=== PATIENT | female | born 1965 | race Hispanic/Latino ===

== ENCOUNTER 2020-05-05 18:05 | Emergency (ER) | payer BC, OTHER ==
[~2020-05-05] VITALS: Ht 157.5 cm; Wt 81.6 kg
[2020-05-05 19:24] LABS: CLARITY,URINE SL CLOUDY (CLEAR); COLOR,URINE YELLOW (YELLOW); LEUKOCYTE ESTERASE ,URINE NEGATIVE (NEGATIVE); NITRITE,URINE NEGATIVE (NEGATIVE); PROTEIN,URINE DIPSTICK TRACE (NEGATIVE)
[2020-05-05 19:25] LABS: BILIRUBIN,URINE NEGATIVE (NEGATIVE); KETONES,URINE NEGATIVE (NEGATIVE); URINE UROBILINOGEN 0.2 mg/dL (0.2 - 1)
[2020-05-05 19:26] LABS: PREGNANCY TEST, URINE NEGATIVE (NEGATIVE)
[2020-05-05] MEDS ORDERED: ACETAMINOPHEN 325 MG TAB PO ONE (19:30)
[2020-05-05 19:38] LABS: AMORPHOUS SEDIMENT,URINE MODERATE (FEW); BACTERIA,URINE MODERATE /HPF; EPITHELIAL CELLS,URINE FEW /LPF; RBC,URINE 0-5 /HPF (0-5)
[2020-05-05 20:01] LABS: EOSINOPHILS % 0.4 % (0.0-6.0); HEMATOCRIT 42.3 % (34.2-44.1); HEMOGLOBIN 13.5 g/dL (12.0-16.0); LYMPHOCYTES # (AUTO) 1.4 (1.0-3.2); LYMPHOCYTES % 29.6 % (18.0-39.1); MEAN CORPUSCULAR HEMOGLOBIN 27.8 pg (28-32); MEAN CORPUSCULAR HGB CONC 31.9 g/dL (31-35); MEAN CORPUSCULAR VOLUME 87.2 fL (81-99); MONOCYTES # (AUTO) 0.4 (0.2-0.8); MONOCYTES % 9.3 % (4.4-11.3); NEUTROPHILS # (AUTO) 2.8 (2.1-6.9); NEUTROPHILS % 60.5 % (38.7-80.0); PLATELET COUNT 150 x10e3/uL (140-360); RED BLOOD COUNT 4.85 x10e6/uL (3.6-5.1); RED CELL DISTRIBUTION WIDTH 13.2 % (11.7-14.4)
[2020-05-05 20:13] LABS: ALBUMIN 3.8 g/dL (3.5-5.0); ALBUMIN/GLOBULIN RATIO 1.3 (0.8-2.0); ANION GAP 9.7 mmol/L (8-16); CALCIUM 8.7 mg/dL (8.4-10.2); CREATININE, SERUM 1.01 mg/dL (0.57-1.11); POTASSIUM 3.7 mmol/L (3.5-5.1)
--- NOTE | 2020-05-06 00:28 | Diagnostic Imaging Report ---
Examination: Single AP view of the chest. COMPARISON: None. INDICATION: Shortness of breath, chest pain, fever IMPRESSION: 1. Lines and Tubes: None 2. Lungs are grossly clear. No consolidation or effusion. 3. Cardiomediastinal silhouette is normal. Pulmonary vasculature is normal. 4. No acute bony abnormalities. Signed by: Dr. Leonel Gonzales M.D. on 05/06/2020 12:25 AM
--- NOTE | 2020-05-06 02:20 | Emergency Department Note ---
History of Present Illnes History of Present Illness Chief Complaint: General Medicine Complaints History of Present Illness This is a 54 year old female HERE FOR BODY ACHES AND HEADACHE, ALSO REPORTS SUBJECTIVE FEVER AT HOME AND URINARY FREQUENCY BUT DENIES PAINFUL URINATION. . Historian: Patient Arrival Mode: Car Onset (how long ago): day(s) (2) Location: BODY, HEAD Quality: FEVER BODY ACHES, DYSURIA Radiation: Reports non-radiation Severity: mild Onset quality: gradual Duration (how long): day(s) (2) Timing of current episode: constant Progression: unchanged Chronicity: new Context: Denies recent illness, Denies recent surgery Relieving factors: none Exacerbating factors: none Associated symptoms: Reports denies other symptoms Past Medical/Family History Physician Review I have reviewed the patient's past medical and family history. Any updates have been documented here. Past Medical History Recent Fever: Yes Clinical Suspicion of Infectio: Yes New/Unexplained Change in Ment: No Past Medical History: GERD Other Surgery: KIDNEY REMOVAL Social History Smoking Cessation: Never Smoker Alcohol Use: None Any Illegal Drug Use: No TB Exposure/Symptoms: No Physically hurt or threatened: No Other Any Pre-Existing Lines (PICC,: No Is patient up to date on immun: Yes Last Flu: UTD Last Pneumovax: DENIES Review of Systems Review of Systems Constitutional: Reports as per HPI EENTM: Reports no symptoms Cardiovascular: Reports no symptoms Respiratory: Reports no symptoms Gastrointestinal: Reports no symptoms Genitourinary: Reports as per HPI Musculoskeletal: Reports no symptoms Integumentary: Reports no symptoms Neurological: Reports no symptoms Psychological: Reports no symptoms Endocrine: Reports no symptoms Hematological/Lymphatic: Reports no symptoms Physical Exam Related Data Allergies: Coded Allergies: No Known Allergies (Unverified , 05/05/20) Triage Vital Signs Vital Signs Date Time Temp Pulse Resp B/P (MAP) Pulse Ox O2 Delivery O2 Flow Rate FiO2 05/05/20 18:32 101.2 100 18 131/85 97 Vital signs reviewed: Yes Physical Exam CONSTITUTIONAL Constitutional: Present well-developed, Present well-nourished HENT HENT: Present normocephalic, Present atraumatic, Present oropharynx clear/moist, Present nose normal HENT L/R: Present left ext ear normal, Present right ext ear normal EYES Eyes: Reports PERRL, Reports conjunctivae normal NECK Neck: Present ROM normal PULMONARY Pulmonary: Present effort normal, Present breath sounds normal CARDIOVASCULAR Cardiovascular: Present regular rhythm, Present heart sounds normal, Present capillary refill normal, Present normal rate GASTROINTESTINAL Abdominal: Present soft, Present nontender, Present bowel sounds normal GENITOURINARY Genitourinary: Present exam deferred SKIN Skin: Present warm, Present dry MUSCULOSKELETAL Musculoskeletal: Present ROM normal NEUROLOGICAL Neurological: Present alert, Present oriented x 3, Present no gross motor or sensory deficits PSYCHOLOGICAL Psychological: Present mood/affect normal, Present judgement normal Results Laboratory Result Diagram: 05/05/20193905/05/201939 Laboratory Laboratory Tests Test 05/05/20 23:37 05/05/20 19:40 05/05/20 18:37 White Blood Count 4.60 x10e3/uL (4.8-10.8) Red Blood Count 4.85 x10e6/uL (3.6-5.1) Hemoglobin 13.5 g/dL (12.0-16.0) Hematocrit 42.3 % (34.2-44.1) Mean Corpuscular Volume 87.2 fL (81-99) Mean Corpuscular Hemoglobin 27.8 pg (28-32) Mean Corpuscular Hemoglobin Concent 31.9 g/dL (31-35) Red Cell Distribution Width 13.2 % (11.7-14.4) Platelet Count 150 x10e3/uL (140-360) Neutrophils (%) (Auto) 60.5 % (38.7-80.0) Lymphocytes (%) (Auto) 29.6 % (18.0-39.1) Monocytes (%) (Auto) 9.3 % (4.4-11.3) Eosinophils (%) (Auto) 0.4 % (0.0-6.0) Basophils (%) (Auto) 0.0 % (0.0-1.0) Neutrophils # (Auto) 2.8 (2.1-6.9) Lymphocytes # (Auto) 1.4 (1.0-3.2) Monocytes # (Auto) 0.4 (0.2-0.8) Eosinophils # (Auto) 0.0 (0.0-0.4) Basophils # (Auto) 0.0 (0.0-0.1) Absolute Immature Granulocyte (auto 0.01 x10e3/uL (0-0.1) Sodium Level 141 mmol/L (136-145) Potassium Level 3.7 mmol/L (3.5-5.1) Chloride Level 108 mmol/L (98-107) Carbon Dioxide Level 27 mmol/L (22-29) Anion Gap 9.7 mmol/L (8-16) Blood Urea Nitrogen 9 mg/dL (7-26) Creatinine 1.01 mg/dL (0.57-1.11) Estimat Glomerular Filtration Rate 57 ML/MIN (60-) BUN/Creatinine Ratio 9 (6-25) Glucose Level 113 mg/dL (74-118) Calcium Level 8.7 mg/dL (8.4-10.2) Total Bilirubin 0.4 mg/dL (0.2-1.2) Aspartate Amino Transf (AST/SGOT) 18 IU/L (5-34) Alanine Aminotransferase (ALT/SGPT) 19 IU/L (0-55) Alkaline Phosphatase 60 IU/L (40-150) Total Protein 6.8 g/dL (6.5-8.1) Albumin 3.8 g/dL (3.5-5.0) Globulin 3.0 g/dL (2.3-3.5) Albumin/Globulin Ratio 1.3 (0.8-2.0) Urine Color Yellow (YELLOW) Urine Clarity Sl cloudy (CLEAR) Urine pH 6.5 (5 - 7) Urine Specific [place] 1.020 (1.010-1.025) Urine Protein Trace (NEGATIVE) Urine Glucose (UA) Negative (NEGATIVE) Urine Ketones Negative (NEGATIVE) Urine Blood Small (NEGATIVE) Urine Nitrite Negative (NEGATIVE) Urine Bilirubin Negative (NEGATIVE) Urine Urobilinogen 0.2 mg/dL (0.2 - 1) Urine Leukocyte Esterase Negative (NEGATIVE) Urine RBC 0-5 /HPF (0-5) Urine WBC None /HPF (0-5) Urine Epithelial Cells Few /LPF (NONE) Urine Amorphous Sediment Moderate (FEW) Urine Bacteria Moderate /HPF (NONE) Urine Test Negative (NEGATIVE) Lab results reviewed: Yes Imaging Imaging results reviewed: Yes Impressions Examination: Single AP view of the chest. COMPARISON: None. INDICATION: Shortness of breath, chest pain, fever IMPRESSION: 1. Lines and Tubes: None 2. Lungs are grossly clear. No consolidation or effusion. 3. Cardiomediastinal silhouette is normal. Pulmonary vasculature is normal. 4. No acute bony abnormalities. Signed by: Dr. Leonel Gonzales M.D. on 05/06/2020 12:25 AM Assessment & Plan Medical Decision Making MDM PT WITH FEVER, BODY ACHES AND URINARY FREQUENCY UA, CXR, COVID 19, CBC, CMP, ORDERED TO EVAL FOR UTI, COVID 19, PNEUMONIA, ELECTROLYTE ABNORMALITY. PT'S WORK UP NEGATIVE, COVID 19 STILL PENDING, PT DISCHARGED HOME, WILL CALL PT WITH RESULTS, PT INSTRUCTED TO SELF QUARANTINE FOR NEXT 10 DAYS. Assessment & Plan Final Impression: (1) Fever (2) Viral syndrome Depart Disposition: HOME, SELF-CARE Last Vital Signs Date Time Temp Pulse Resp B/P (MAP) Pulse Ox O2 Delivery O2 Flow Rate FiO2 05/05/20 23:41 97.1 80 20 115/86 97 Medications in the ED Acetaminophen 650 mg ONCE ONCE PO Last administered on 05/05/20at 19:30; Admin Dose 650 MG; Start 05/05/20 at 19:30; Stop 05/05/20 at 19:31; Status DC BITA ROBLEDO MD May 06, 2020 02:20
[2020-05-06 02:27] VITALS: BP 104/70
--- NOTE | 2020-05-06 03:23 | NUR ---
ER CALLED PATIENT TO NOTIFY OF COVID RESULTS
== END 2020-05-06 02:35 | disposition home or self-care (01) ==
LOC: ER 18:05
DX: R50.9 Fever, unspecified (principal); B34.9 Viral infection, unspecified; R51 Headache; R30.0 Dysuria; K21.9 Gastro-esophageal reflux disease without esophagitis
CPT/HCPCS: 36415; 71045; 80053; 81001; 81025; 85025; 87635; 99284